=== PATIENT | male | born 1965 | race African-American/Black ===

== ENCOUNTER 2025-10-21 12:58 | Emergency (ER) | payer MEDICAID ==
[~2025-10-21] VITALS: Ht 175.3 cm; Wt 104.0 kg
[2025-10-21 13:03] VITALS: O2SAT 98
[2025-10-21] MEDS: LIDOCAINE HCL 1% 20ML VIAL INFIL ONE (14:33)
[2025-10-21] MEDS ORDERED: BO1 TP (16:11)
[2025-10-21] MEDS: BACITRACIN ZINC OINT UDPKT TOP ONE (16:30)
[2025-10-21 16:35] VITALS: BP 138/88; PULSE 78; RESP 15; TEMP 37; O2SAT 98
== END 2025-10-21 16:36 | disposition home or self-care (01) ==
LOC: ER 12:58
DX: S01.81XA Laceration without foreign body of other part of head, initial encounter (principal); E11.9 Type 2 diabetes mellitus without complications; I10 Essential (primary) hypertension; S50.311A Abrasion of right elbow, initial encounter; W19.XXXA Unspecified fall, initial encounter; X58.XXXA Exposure to other specified factors, initial encounter; Y93.89 Activity, other specified; Y92.89 Other specified places as the place of occurrence of the external cause; Y99.8 Other external cause status
CPT/HCPCS: 70450; 70486; 12011; 99284; J2003; Z7610; 12001

== ENCOUNTER 2025-10-30 18:22 | Emergency (ER) | payer MEDICAID ==
[~2025-10-30] VITALS: Ht 175.3 cm; Wt 105.0 kg
[~2025-10-30 18:22] MED LIST: BO1 TP
[2025-10-30 18:38] VITALS: O2SAT 99
[2025-10-30 20:13] VITALS: BP 140/85; PULSE 55; RESP 16; TEMP 36.4; O2SAT 99
== END 2025-10-30 20:14 | disposition home or self-care (01) ==
LOC: ER 18:22
DX: S01.112D Laceration without foreign body of left eyelid and periocular area, subsequent encounter (principal); X58.XXXD Exposure to other specified factors, subsequent encounter
CPT/HCPCS: 99282; Z7610